=== PATIENT | male | born 1990 | race Caucasian/White ===

== ENCOUNTER 2021-02-07 02:23 | Emergency (ER) | payer BC, SELFPAY ==
[2021-02-07 02:25] VITALS: BP 196/91; PULSE 83; RESP 18; TEMP 36.4; O2SAT 99; BMI 77.3
[2021-02-07 02:29] VITALS: BP 187/100
--- NOTE | 2021-02-07 02:37 | ED.VIS.CHEST ---
HPI History of Present Illness Chief Complaint: Chest Pain Detail of Chief Complaint: Actually his main complaint is elevated blood pressure. Informant: patient and spouse/S.O. Onset/Context/Timing Onset: Today Timing: Intermittent Current Severity: Mild Maximum Severity: Mild Narrative Narrative: 30-year-old male history of hypertension and anxiety. States his blood pressures been elevated today in spite of him taking his normal blood pressure medications which is propranolol and hydralazine. He states that he is really not having any chest pain he said he always has some chest discomfort that is not new or different. He denies any cardiac disease. No recent travel, surgery or immobilization. No history of DVT or PE. No hemoptysis or pleuritic pain. Prior Similar Symptoms: Yes Recent Illness/Hospitalization: No CVD Risk Factors: Positive for Hypertension; Negative for Diabetes and Hypercholesterolemia PE Risk Factors: Negative for Recent Travel/Surgery and Recent Immobilization TAD Risk Factors: Positive for Hypertension; Negative for Family History PFSH PFSH Medical History Anxiety BiPAP (biphasic positive airway pressure) dependence Hypertension Sleep apnea Home Medications ergocalciferol (vitamin D2) [Vitamin D2] 1,250 mcg PO QWEEK 02/07/21 [History Last Taken Unknown] hydroxyzine HCl 25 mg PO TID PRN 02/07/21 [History Last Taken Unknown] meloxicam 15 mg PO DAILY 02/07/21 [History Last Taken Unknown] paroxetine HCl 10 mg PO DAILY 02/07/21 [History Last Taken Unknown] propranolol 10 mg PO TID 02/07/21 [History Last Taken Unknown] Allergy/AdvReac Type Severity Reaction Status Date / Time No Known Allergies Allergy Verified 02/07/21 02:28 Social History Smoking Status: Current every day smoker tobacco type: smokeless tobacco ROS ROS ED ROS Narrative Denies recent illness. Review of Systems ROS Unobtainable: Denies due to encephalopathy Constitutional Constitutional ED: Denies fever(s) Eyes Eyes: Denies none ENT ENT ED: Denies ear pain Cardiovascular Cardiovascular: Reports chest pain; Denies as per HPI or palpitations Respiratory/Chest Respiratory/Chest: Denies dyspnea Gastrointestinal Gastrointestinal: Denies abdominal pain, diarrhea, nausea or vomiting Genitourinary Genitourinary ED: Denies dysuria Musculoskeletal Musculoskeletal: Denies myalgias Integumentary Denies rash Neurologic Neurologic: Denies headache(s) Psychiatric Psychiatric: Denies depression Endocrine Endocrinology: Denies polyuria Hematologic/Lymphatic Hematologic/Lymphatic: Denies easy bruising Allergic/Immunologic Allergic/Immunologic ED: Denies urticaria EXAM Physical Exam Narrative Exam Narrative: 30-year-old male vital signs stable afebrile blood pressure elevated 196/91 187/100 on repeat. He is in no distress. H EENT exam is unremarkable. Neck nontender no JVD. Lungs clear to auscultation bilaterally. Heart regular rhythm no murmur rate about 80. Chest wall nontender. Abdomen morbidly obese but soft nondistended normal bowel sounds no peritoneal signs. Patient moving all 4 extremities. Calves are nontender without edema or cords. Neurologically is awake and alert with no focal motor deficits. Const Vital Signs: 02/07/21 02:25 02/07/21 02:29 Temperature 97.6 F L Temperature Source Temporal Pulse Rate 83 Respiratory Rate 18 Respiratory Effort Normal Blood Pressure 196/91 H 187/100 H Blood Pressure Mean 126 129 Pulse Ox 99 Positive well nourished, well developed and obese; Negative for unkempt General Appearance ED: well developed; Negative for unkempt, NAD or pallor Nutritional Appearance: obese HEENT Reports moist mucous membranes normocephalic and atraumatic; Negative for trauma or tenderness Eyes PERRL and EOMs intact bilaterally Neck no lymphadenopathy, supple and no JVD General: Negative for tenderness Chest Wall inspection of chest normal and palpation of chest normal Resp normal respiratory effort and clear to auscultation bilaterally Effort and Inspection: respiratory distress Auscultation: Negative for rales, rhonchi or wheezes Cardio regular rate, regular rhythm, S1 normal heart sound, S2 normal heart sound and no murmurs Rate: Negative for bradycardia or tachycardic GI normal to inspection, nondistended, normoactive bowel sounds, soft to palpation, non-tender, non-distended and no masses Back/Spine no CVA tenderness Extremity normal to inspection General Extremety ED: Negative for edema or tenderness General Extremity: Negative for edema Neuro oriented x3 Sensorium / Orientation: awake, alert, oriented to person, oriented to place and oriented to time; Negative for lethargic or stuporous Motor Exam: strength 5/5 throughout Psych mental status grossly normal Appearance: Negative for unkempt Mood & Affect: anxious; Negative for depressed or tearful Skin no rashes or lesions noted and no wounds General Skin Exam: Negative for jaundice or pallor Heart Score History: Slightly/Non-Suspicious ECG: Normal Age: </= 45 years Risk Factors: 1 or 2 Risk Factors Score: 1 MDM MDM MDM Narrative Medical decision making narrative: Morbidly obese 30-year-old male with acute on chronic hypertension. He is very stable clinically. A lot of this seems to be due to his anxiety. His EKG is unremarkable. I will obtain a chest x-ray. He always has chest pain this does not sound cardiac at all. I do not think he needs labs. He will be given a dose of oral medication and have his blood pressure rechecked. Repeat exam patient doing well. At 3:33 AM. Current blood pressure 177/86. He was treated here with p.o. beta-huang and will be discharged home with outpatient follow-up. Radiography Chest X-Ray - ED: 1 View, Read by ED Physician, Read by Radiologist, Heart, Lungs, Mediastinum, Bony Structures, No Acute Disease and Chronic Changes Diagnostic Testing: Radiology Impression Chest X-Ray 02/07/21 02:50 IMPRESSION: CHF. Electronically Signed: David Donaldson MD at 3:08 EDT Tel , Service support , Portable chest x-ray shows no acute abnormality. Radiologist's reading is CHF I disagree I think is secondary to patient's body habitus. I do not think he has acute pulmonary edema. Rhythm Strip Rhythm Strip: Sinus Rhythm Rate: 80 Ectopy: None EKG Initial EKG: Attestation: I personally reviewed and interpreted this EKG as follows: Interpretation: Sinus Rhythm and No Acute Injury Pattern Comments: Normal sinus rhythm rate of 80 no acute signs of GA or ischemia. Discharge Plan Triage Chief Complaint: Chest Pain Other Complaint: Anxiety ED Provider: Jay Shirley Dx/Rx/DC Orders Clinical Impression: Hypertension Instructions: ED High Blood Pressure Hypertension Prescriptions: No Action paroxetine HCl 10 mg Tablet 10 mg PO DAILY RF: 0 meloxicam 15 mg Tablet 15 mg PO DAILY RF: 0 propranolol 10 mg Tablet 10 mg PO TID RF: 0 hydroxyzine HCl 25 mg Tablet 25 mg PO TID PRN (Reason: Anxiety) RF: 0 ergocalciferol (vitamin D2) [Vitamin D2] 1,250 mcg (50,000 unit) Capsule 1,250 mcg PO QWEEK RF: 0 Primary Care Provider: Christina Rosen Referrals: Christina Rosen MD [Primary Care Provider] - 1 Week Activity Restrictions/Additional Instructions: Continue your current blood pressure medications. Log your blood pressures twice daily. Call your doctor's office and follow-up showed of your blood pressure readings in you and then can decide if they need to adjust or change your blood pressure medications. Disposition Disposition: Home, Self Care
--- NOTE | 2021-02-07 02:50 | RAD_ITS ---
STUDY: X-RAY CHEST REASON FOR EXAM: Male, 30 years old. Chest pain TECHNIQUE: Portable, upright, AP chest radiograph The images are under penetrated. COMPARISON: None. FINDINGS: The lungs are clear and expanded. There is no demonstrated pleural abnormality. There is borderline cardiomegaly. Normal mediastinum and shruthi. There is prominence of the pulmonary hilar arteries and peripheral pulmonary arteries, consistent with congestive heart failure (CHF). Normal visualized aortic arch and descending thoracic aorta. Normal visualized ribs, clavicles, and shoulders. There is no demonstrated abnormality of the visualized soft tissue structures of the upper abdomen. RAD/Chest 1 View (Portable) IMPRESSION: CHF. Electronically Signed: David Donaldson MD at 3:08 EDT Tel , Service support ,
[2021-02-07] MEDS: hydroCHLOROthiazide 25 MG Tablet PO (03:04)
[2021-02-07] MEDS: Metoprolol Tartrate 100 MG Tablet PO (03:04)
[2021-02-07 03:39] VITALS: BP 173/87; PULSE 67; RESP 16; TEMP 36.7; O2SAT 99
--- NOTE | 2021-02-07 04:39 | EKG12_ITS ---
Test Reason : CP Blood Pressure : / mmHG Vent. Rate : 080 BPM Atrial Rate : 080 BPM P-R Int : 150 ms QRS Dur : 108 ms QT Int : 380 ms P-R-T Axes : 025 057 039 degrees QTc Int : 438 ms Normal sinus rhythm Normal ECG Confirmed by SKYLA BUTTERFIELD, DORIS ([id number]), restaurant expeditor HIEN CAMARA ([id number]) on 02/08/2021 1:26:53 PM Referred By: GISEL Confirmed By:DORSI CRUM MD
== END 2021-02-07 03:43 | disposition home or self-care (01) ==
PROVIDERS: Emergency Provider Emergency Medicine; PCP Internal Medicine
DX: I10 Essential (primary) hypertension (principal); R07.9 Chest pain, unspecified; F41.9 Anxiety disorder, unspecified; G47.30 Sleep apnea, unspecified; E66.01 Morbid (severe) obesity due to excess calories; F17.200 Nicotine dependence, unspecified, uncomplicated; Z79.1 Long term (current) use of non-steroidal anti-inflammatories (NSAID); Z79.899 Other long term (current) drug therapy
CPT/HCPCS: 71045; 93005; 99285

== ENCOUNTER → 2022-05-20 | Outpatient (CLI) | payer BC, SELFPAY | END | disposition home or self-care (01) | PROVIDERS: PCP Internal Medicine; Referring Provider Nurse Practitioner; Visit Provider Nurse Practitioner | DX: G47.33 Obstructive sleep apnea (adult) (pediatric) (principal); E66.01 Morbid (severe) obesity due to excess calories; Z68.45 Body mass index [BMI] 70 or greater, adult; R40.0 Somnolence | CPT/HCPCS: 95811 ==

== ENCOUNTER → 2022-06-16 | Outpatient (CLI) | payer BC, SELFPAY | END | disposition home or self-care (01) | LOC: SL 08:47 | PROVIDERS: PCP Internal Medicine; Visit Provider Nurse Practitioner | DX: Z00.00 Encounter for general adult medical examination without abnormal findings (principal) ==